=== PATIENT | male | born 1990 | race Caucasian/White ===

== ENCOUNTER 2021-11-09 14:22 | Outpatient (CLI) | payer BC, SELFPAY ==
[2021-11-09 17:17] LABS: Albumin* 4.7 g/dL (3.3-5.0); Chloride* 102 mmol/L (96-114); Sodium* 140 mmol/L (135-149)
[2021-11-09 17:20] LABS: Creatinine* 1.5 mg/dL (0.5-1.5); Estimated Glomerular Filt Rate 63 ml/min
[2021-11-09 17:21] LABS: Alanine Aminotransferase* 23 U/L (4-50); Alkaline Phosphatase* 62 U/L (40-150); Aspartate Amino Transferase* 32 U/L (12-35); Bilirubin Total* 0.4 mg/dL (0.1-1.5); Blood Urea Nitrogen* 14 mg/dL (5-24); Calcium* 9.4 mg/dL (8.4-10.6); Carbon Dioxide* 30 mmol/L (20-32); Glucose* 103 mg/dL (60-115); Total Protein* 7.1 g/dL (6.0-8.3)
[2021-11-09 17:30] LABS: C Reactive Protein* < 0.5 mg/dL (0.5-1.0)
== END 2021-11-09 14:23 | disposition home or self-care (01) ==
PROVIDERS: PCP Family Medicine; Visit Provider Family Medicine
DX: R10.32 Left lower quadrant pain (principal); M54.9 Dorsalgia, unspecified
CPT/HCPCS: 80053; 86140

== ENCOUNTER 2021-11-17 15:48 | Outpatient (CLI) | payer BC, SELFPAY ==
--- NOTE | 2021-11-17 16:00 | CRLHL7_ITS ---
For Patients: As a result of the Century Cures Act, medical imaging exams and procedure reports are released immediately into your electronic medical record. You may view this report before your referring provider. If you have questions, please contact your health care provider. INDICATION: Left lower quadrant pain. TECHNIQUE: CT abdomen and pelvis without contrast. COMPARISON: None. FINDINGS: Lower chest: Unremarkable. Liver: Normal in size and attenuation. No suspicious masses. Gallbladder and bile ducts: No stones or inflammation. No biliary dilatation. Pancreas: Unremarkable. No mass or inflammation. Spleen: Normal in size. No masses. Adrenal glands: Normal in size. No nodules. Kidneys: Normal in size. No suspicious masses, stones, or hydronephrosis. GI tract: Unremarkable. Normal in caliber. No sign of mass or inflammation. Normal appendix. Vasculature: Unremarkable. Lymph nodes: No lymphadenopathy. Abdominal wall/Omentum/Peritoneum: Unremarkable. No sign of mass or infiltration. No free air or significant free fluid. Small fat containing umbilical hernia. Pelvis: Small bilateral fat containing inguinal hernias. No pelvic mass, lymphadenopathy, or free fluid. Bones: Unremarkable for age. IMPRESSION: No evidence of acute intra-abdominal or pelvic abnormality. Please note that all CT scans at this facility use dose modulation, iterative reconstruction, and/or weight-based dosing when appropriate to reduce radiation dose to as low as reasonably achievable. Dictated by Jai Harris MD @ 11/18/2021 8:16:30 AM (Electronically Signed)
== END 2021-11-17 15:49 | disposition home or self-care (01) ==
PROVIDERS: PCP Family Medicine; Visit Provider Family Medicine
DX: R10.32 Left lower quadrant pain (principal)
CPT/HCPCS: 74176

== ENCOUNTER 2021-11-30 14:54 | Outpatient (CLI) | payer BC, SELFPAY ==
--- NOTE | 2021-11-30 15:00 | CRLHL7_ITS ---
For Patients: As a result of the Century Cures Act, medical imaging exams and procedure reports are released immediately into your electronic medical record. You may view this report before your referring provider. If you have questions, please contact your health care provider. Indication: Left-sided testicular and groin pain. Technique: Ultrasound of the scrotum and contents. Sonographic plaza-scale images were obtained with spectral and color Doppler waveform and spectral waveform analysis of the testicles. Comparison: None. Findings: Bother testicles are normal in size and echotexture. No masses. No suspicious calcifications. Arterial and venous color Doppler blood flow and spectral waveforms are present in both testicles. Epididymis: Bilateral simple appearing cysts. Otherwise unremarkable. Other: No significant hydrocele. No sign of varicocele. Scrotal wall is normal. No sign of hernia. Impression: Unremarkable ultrasound of the scrotum and contents. No sign of torsion or inflammation. No hernia or other specific explanation for pain. Dictated by Yrn Jackson MD @ 11/30/2021 3:53:07 PM (Electronically Signed)
== END 2021-11-30 14:55 | disposition home or self-care (01) ==
LOC: US 14:55
PROVIDERS: PCP Family Medicine; Visit Provider Surgery
DX: R10.32 Left lower quadrant pain (principal); N50.812 Left testicular pain
CPT/HCPCS: 76870; 93976

== ENCOUNTER 2022-05-10 08:53 | Outpatient (CLI) | payer BC, SELFPAY ==
[2022-05-10 10:55] LABS: Albumin* 4.4 g/dL (3.3-5.0); Chloride* 104 mmol/L (96-114)
[2022-05-10 10:56] LABS: Potassium* 4.1 mmol/L (3.6-5.1); Sodium* 140 mmol/L (135-149)
[2022-05-10 10:58] LABS: Alanine Aminotransferase* 32 U/L (4-50); Alkaline Phosphatase* 53 U/L (40-150); Aspartate Amino Transferase* 44 U/L (12-35); Blood Urea Nitrogen* 13 mg/dL (5-24); Calcium* 9.1 mg/dL (8.4-10.6); Carbon Dioxide* 30 mmol/L (20-32); Cholesterol* 191 mg/dL (90-199); Creatinine* 1.1 mg/dL (0.5-1.5); Estimated Glomerular Filt Rate 91 ml/min; Glucose* 98 mg/dL (60-115); Total Protein* 6.9 g/dL (6.0-8.3); Triglycerides* 204 mg/dL (40-149)
[2022-05-10 10:59] LABS: HDL Cholesterol* 52 mg/dL (>=40); LDL Cholesterol Calculated 98 mg/dL (<100)
== END 2022-05-10 08:54 | disposition home or self-care (01) ==
LOC: NFLDREF 08:53
PROVIDERS: PCP Family Medicine; Visit Provider Family Medicine
DX: E78.41 Elevated Lipoprotein(a) (principal); E78.5 Hyperlipidemia, unspecified
CPT/HCPCS: 80053; 80061; 83695

== ENCOUNTER 2022-07-06 07:25 | Outpatient (CLI) | payer BC, SELFPAY | END 2022-07-06 07:26 | disposition home or self-care (01) | LOC: NFLDREF 07-08 04:50 | PROVIDERS: PCP Family Medicine; Referring Provider Family Medicine; Visit Provider Internal Medicine | DX: E78.5 Hyperlipidemia, unspecified (principal) | CPT/HCPCS: 80061 ==

== ENCOUNTER 2023-06-02 08:25 | Outpatient (CLI) | payer BC, SELFPAY | END 2023-06-02 08:26 | disposition home or self-care (01) | PROVIDERS: PCP Family Medicine; Visit Provider Family Medicine | DX: E78.2 Mixed hyperlipidemia (principal); Z79.899 Other long term (current) drug therapy | CPT/HCPCS: 80048; 80061; 83695; 84460 ==

== ENCOUNTER 2024-05-31 07:59 | Outpatient (CLI) | payer BC, SELFPAY | END 2024-05-31 08:00 | disposition home or self-care (01) | LOC: NFLDREF 06-03 03:08 | PROVIDERS: PCP Family Medicine; Referring Provider Family Medicine; Visit Provider Internal Medicine | DX: E78.2 Mixed hyperlipidemia (principal); R36.1 Hematospermia; E78.41 Elevated Lipoprotein(a) | CPT/HCPCS: 80053; 80061; 83695 ==

== ENCOUNTER 2024-08-17 18:50 | Emergency (ER) | payer BC, SELFPAY ==
--- OUTSIDE RECORDS SUMMARY | 2016-01-21 05:22 | XMS_ITS | Continuity of Care Document ---
Demographics Address [address] [place] [address] Home Phone Preferred Language en Marital Status Unknown Samaritan Affiliation Unknown Race White Ethnic Group Not or Lati no Author Organization [facility] Address [address] [address] [place] [address] Phone Care Team Providers Care Spray Maker Name Role Phone Unavailable Unavailable Unavailable Allergies, Adverse Reactions, Alerts Substance Reaction Status Criticality No Known Allergies Active No Inform ation Medications Medication Instructions Dosage Effective Dates (start - stop) Status Comments Prevacid 30 mg capsule,delayed release take 1 capsule by oral route every day before a meal 30 MG - Active Procedures Procedure Date Offic/outpt E&m [facility] Routine Serum Collection Gg; Iga, Igd, Igg, Igm, Ea C-reactive Prot Advance Directives Directive Yes / No Effective Date File Name No Information Encounters Encounter Description Practice Location Reason(s) For Visit Diagnoses Date Provider Providers Copied on Encounter [facility], [address] [address], [place], [place], [id number], [place] tel:[phone] [facility] No Information No Information [facility], [address] [address], [place], [id number], [place] tel:[phone] [facility] Diarrhea, unspecified 6 No Information Referring Provider: Cristel Quiñonez [place], [address] [place], [address]. tel:[phone] Offic/outpt E&m [facility], [address] [address], [place], [id number], [place] tel:[phone] [facility] GI Symptoms or Concerns (chief complaint) Loose stoolsAbdomina l gas pain 201 6 No Information Referring Provider: Cristel Quiñonez [place], [address] [place], [address]. tel:[phone] Family History Family Member Type Diagnosis Age At Onset Mother Problem (finding) GERD Payers Payer name Insurance type Covered alliance party ID Fatuma byrne(s) Blue Cross Of [facility] [id number] Social History Type Description Quantity Date Captured Comments Alcohol Use Details Unknown Caffeine Use Details Unknown Tobacco Use Status No Information Smoking Status No Information Sex Male Chief Complaint And Reason For Visit No Information Reason For Referral Reason For Referral No Information Plan Of Treatment Date Type Action Status Referral Ordered: Celiac S. Panel: Glia(IgG/A)+IgA+tTG Appointment date/timeframe: -today ordered Referral Ordered: Immunoglobulins A/E/G/M, Serum Appointment date/timeframe: -today ordered History Of Present Illness Encounter Date Complaint History Of Prese nt Illness GI Symptoms or Concerns The cedrick ent is a 25-year-old male seen today because of a two-year history of loose stools and abdominal gas discomfort. Up until two years ago, the patient had very regular bowel habits with one formed stool daily. Over the last two years, however, he has had one and sometimes two stools per day. The big difference is that his stools, while previously normally formed, have been persistently soft and mushy, but never watery. Patient denies any history of constipation. He has had no blood in the stool nor any melena. Patient denies any nocturnal stools, urgency, or fecal incontinence. Stools are easy to flush and do not appear to be oily.Concomitantly, the patient does experience intermittent abdominal gaseous discomfort. This is more notable before a bowel movement and is relieved in general by passing stool. He has had no other abdominal pain. The patient denies any history of fever, chills, nausea, vomiting, or hematemesis. He does have an eight-year history of kirstin Functional Status Date Functional Assessmen t No Information Instructions Date Instruction Additional Infor cliff 1. Laboratory - C-re active protein, thyroid cascade, and celiac markers.2. Stool for ova and parasites, Giardia/Cryptosporidium, Clostridium difficile, and qualitative fat.3. I have recommended a one month trial of a high-fiber diet with the thought being that the patient's symptoms which are relatively mild could indeed be related to a form of irritable bowel. We discussed the high-fiber diet approach in some detail and the patient was given information in this regard. He indicated that he would like to try this approach for the next month.4. Patient was additionally given information on abdominal gas/gas pain, irritable bowel syndrome, and diarrhea.5. Patient will be seen in clinic followup in approximately one month assuming that above studies proved to be negative. At that time, his clinical status will be reassessed and further recommendations discussed as appropriate. If symptoms persist, i.e., no response to high-fiber diet approach, we may need to pursue further investigation such as colonoscopy to rule out inflammatory bowel disease more definitively, possibly breath testing, etc. The patient agrees to this approach and indicated his understanding. I told him to call in the meantime if he has any other questions or concerns. Related to Loose stools Gas and Gas Pain Related to Abdo francisco gas pain IBS Related to Loose stools High Fiber Diet Related to Loose stools Diarrhea Related to Loose stools Assessments Type Assessment Date No Information Patient Care Teams Name Effective Dates (start - stop) Status Members No Information
--- OUTSIDE RECORDS SUMMARY | 2016-01-21 05:22 | XMS_ITS | Continuity of Care Document ---
Demographics Address [address] [place] [address] Home Phone Preferred Language en Marital Status Unknown Sikh Affiliation Unknown Race White Ethnic Group Not or Lati no Author Organization [facility] Address [address] [address] [place] [address] Phone Care Team Providers Care Digital Intern Name Role Phone Unavailable Unavailable Unavailable Allergies, Adverse Reactions, Alerts Substance Reaction Status Criticality No Known Allergies Active No Inform ation Medications Medication Instructions Dosage Effective Dates (start - stop) Status Comments Prevacid 30 mg capsule,delayed release take 1 capsule by oral route every day before a meal 30 MG - Active Procedures Procedure Date Offic/outpt E&m [facility] Routine Serum Collection Gg; Iga, Igd, Igg, Igm, Ea C-reactive Prot Advance Directives Directive Yes / No Effective Date File Name No Information Encounters Encounter Description Practice Location Reason(s) For Visit Diagnoses Date Provider Providers Copied on Encounter [facility], [address] [address], [place], [place], [id number], [place] tel:[phone] [facility] No Information No Information [facility], [address] [address], [place], [id number], [place] tel:[phone] [facility] Diarrhea, unspecified 6 No Information Referring Provider: Cristel Quiñ[place]z [place], [address] [place], [address]. tel:[phone] Offic/outpt E&m [facility], [address] [address], [place], [id number], [place] tel:[phone] [facility] GI Symptoms or Concerns (chief complaint) Loose stoolsAbdomina l gas pain 201 6 No Information Referring Provider: Cristel Quiñonez [place], [address] [place], [address]. tel:[phone] Family History Family Member Type Diagnosis Age At Onset Mother Problem (finding) GERD Payers Payer name Insurance type Covered alliance party ID Fatuma byrne(s) Blue Cross Of [facility] [id number] Social History Type Description Quantity Date Captured [...]
--- OUTSIDE RECORDS SUMMARY | 2024-08-17 18:51 | XMS_ITS | Encounter Summary ---
Author Organization [facility] Address [address] [place] [address] Care Team Providers Care Officer Captain Name Role Phone Billie Rainey APRN, CNP Primary Care Provi shauna Cristel Quiñonez MD Primary Care Provider [phone] Cristel Quiñonez MD Unavailable [phone] Cristel Quiñonez MD Unavailable [phone] Encounter Details Date Type Department Care Team (Late st Contact Info) Description 09/28/2016 [facility] Medical Advice [facility] [address] [place] [phone] Luh Alvarado APRN ARTILLERY SPECIALIST [address] [place], [place] [id number] Social History Tobacco Use Types Packs/Day Years Used Date Smoking Tobacco: Never Smokeless Tobacco: Never Alcohol Use Standard Drinks/Week Comments Yes 0 (1 standard drink = 0.6 oz pur e alcohol) social Sex and Gender Information Value Date Recorded Sex Assigned at Not on file Legal 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 Gender Identity Not on file Sexual Orientation Not on file documented as of this encounter Plan of Treatment Not on file documented as of this encounter Visit Diagnoses Not on filedocumented in this encounter Care Teams Officer Captain Relationship Specialty Start Date End Date Billie Rainey APRN ARTILLERY SPECIALIST PCP - General Nurse Practitioner - Family 11/30/14 12/21/16 Cristel Qu[place] [address] [facility] [place] [address] PCP - General Family Practice 05/01/17 Cristel Quiñ[place] [address] [place] [address] PCP - Assigned PCP 01/08/17 05/22/18 Cristel Quiñ[place] [address] [place] [address] Assigned PCP 01/08/17 05/08/21 documented as of this encounter
--- OUTSIDE RECORDS SUMMARY | 2024-08-17 18:52 | XMS_ITS | Encounter Summary ---
Author Organization [place] Address [facility] [place] [address] Care Team Providers Care Radio Tower Technician Name Role Phone Cristel Quiñonez MD Primary Care Provider [phone] Cristel Quiñonez MD Unavailable [phone] Cristel Quiñonez MD Unavailable [phone] Reason for Visit * Reason Onset Date Comments Refill Request 01/30/2017 Encounter Details Date Type Department Care Team (Late st Contact Info) Description 01/30/2017 [facility] [id number] [place] [address] Cristel Quiñ[place] [address] [place] [address] Refill Request Social History Tobacco Use Types Packs/Day Years Used Date Smoking Tobacco: Never Smokeless Tobacco: Never Alcohol Use Standard Drinks/Week Comments Yes 0 (1 standard drink = 0.6 oz pur e alcohol) social Sex and Gender Information Value Date Recorded Sex Assigned at Not on file 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 [address] Comment: Khang Arrieta, I took the last two venlafaxine this morning. Are you writing a prescription for another 2 weeks? I checked with the pharmacy this morning and they dont have any open prescriptions for me. Thanks! D FINISHER documented in this encounter Plan of Treatment Not on file documented as of this encounter Visit Diagnoses Diagnosis Anxiety Anxiety state, unspecified Mild single current episode of major depressive disorder documented in this encounter Additional Health Concerns Assessment Noted Time PHQ-9 Depression Total Score: 7 12/29/19 17 7:38 AM CDT documented as of this encounter Care Teams Radio Tower Technician Relationship Specialty Start Date End Date Cristel Qu[place] [address] [place] [address] PCP - General Family Practice 05/01/17 Cristel Quiñ[place] [address] [place] [address] PCP - Assigned PCP 01/08/17 05/22/18 Cristel Quiñ[place] [address] [place] [address] Assigned PCP 01/08/17 05/08/21 documented as of this encounter
--- OUTSIDE RECORDS SUMMARY | 2024-08-17 18:52 | XMS_ITS | Encounter Summary ---
Author Organization [facility] Address [facility] [place] [address] Care Team Providers Care Carpet Cleaner Name Role Phone Cristel Quiñonez MD Primary Care Provider [phone] Cristel Quiñonez MD Unavailable [phone] Cristel Quiñonez MD Unavailable [phone] Reason for Visit * Reason Onset Date Comments MyChart Communication 04/13/2017 Encounter Details Date Type Department Care Team (Late st Contact Info) Description 04/13/2017 [facility] Medical 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 Gender Identity Not on file Sexual Orientation Not on file documented as of this encounter Plan of Treatment Not on file documented as of this encounter Visit Diagnoses Not on filedocumented in this encounter Additional Health Concerns Assessment Noted Time PHQ-9 Depression Total Score: 1 03/22/19 18 9:01 AM DATA ARCHITECT MANAGER documented as of this encounter Care Teams Carpet Cleaner Relationship Specialty Start Date End Date Cristel Quiñ[place]z [place] [address] [place] [address] PCP - General Family Practice 05/01/17 Cristel Quiñ[place] [address] [place] [address] PCP - Assigned PCP 01/08/17 05/22/18 Cristel Quiñ[place]z [place] [address] [place] [address] Assigned PCP 01/08/17 05/08/21 documented as of this encounter
--- OUTSIDE RECORDS SUMMARY | 2024-08-17 18:52 | XMS_ITS | Encounter Summary ---
Author Organization [facility] Address [address] [place] [address] Care Team Providers Care Gate Services Supervisor Name Role Phone Lisa Keyes MD Primary Care Provider Billie Rainey APRN [facility] Primary Care Provi shauna Cristel Quiñonez MD Primary Care Provider [phone] Cristel Quiñonez MD Unavailable [phone] Cristel Quiñonez MD Unavailable [phone] Reason for Visit * Reason Onset Date Comments Refill Request 10/10/2011 prevacid Encounter Details Date Type Department Care Team (Late st Contact Info) Description 10/10/[address] [address] Lisa Keyes MD [address] [place] [address] Refill Request (prevacid) Social History Tobacco Use Types Packs/Day Years Used Date Smoking Tobacco: Never Smokeless Tobacco: Never Alcohol Use Standard Drinks/Week Comments No 0 (1 standard drink = 0.6 oz pur e alcohol) Sex and Gender Information Value Date Recorded Sex Assigned at Not on file Legal 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 Pt due for appt. [phone] Left voice mail for patient to call back. MAYE: 05/29/2010 Dilia Ross RN BP Readings from Last 1 Encounters: 05/30/11 108/76 -Encounter/OV: every 12 months -Max RF's until next office visit related to diagnosis: every 12 months Category: Gastrointestinal/Proton Pump Inhibitors Dilia Ross RN. * Telephone Encounter - Cynthia Patel - 10/10/2011 11:16 AM CDT Refill request for Prevacid. Can you refill? Last OV:? Last Refill:05/29/10 LANsoprazole (PREVACID) 30 MG capsule 30 mg, DAILY 4 EditCancel Reorder Summary: Take 1 capsule by mouth daily., 30 mg, Oral, DAILY Starting 05/29/2010, Until Discontinued,Disp-90 capsule, R-4, Fax Dose, Route, Frequency: 30 mg, Oral, DAILY Start: 05/29/2010 Ord/Sold: 05/29/2010 (O) Patient Sig: Take 1 capsule by mouth daily. Ordered on: 05/29/2010 Authorized by: LISA KEYES Dispense: 90 capsule Cynthia Patel, Recreation Therapist documented in this encounter Plan of Treatment Not on file documented as of this encounter Visit Diagnoses Diagnosis GERD (gastroesophageal reflux disease)- Primary Esophageal reflux documented in this encounter Care Teams Gate Services Supervisor Relationship Specialty Start Date End Date Lisa Keyes MD PCP - General Family Practice 01/21/11 11/29/14 Billie Rainey APRN CNP PCP - General Nurse Practitioner - Family 11/30/14 12/21/16 Cristel Qu[place]z [place] [address] [place] [address] PCP - General Family Practice 05/01/17 Cristel Quiñ[place]z [place] [address] [place] [address] PCP - Assigned PCP 01/08/17 05/22/18 Cristel Quiñ[place]z [place] [address] [facility] [facility] [place] [address] Assigned PCP 01/08/17 05/08/21 documented as of this encounter
--- OUTSIDE RECORDS SUMMARY | 2024-08-17 18:52 | XMS_ITS | Encounter Summary ---
Author Organization [place] Address [address] [place] [address]. [place] [address] Care Team Providers Care Public Health Representative Name Role Phone Cristel Quiñonez MD Primary Care Provider [phone] Cristel Quiñonez MD Unavailable [phone] Encounter Details Date Type Department Care Team (Late st Contact Info) Description 10/03/2018 [facility] Medical Advice [facility] [address] [place] [address] Cristel Quiñ[place]z [place] [address] [place] [address] Social History Tobacco Use Types Packs/Day Years Used Date Smoking Tobacco: Never Smokeless Tobacco: Never Alcohol Use Standard Drinks/Week Comments Yes 0 (1 standard drink = 0.6 oz pur e alcohol) social PHQ-2 Answer Date Recorded PHQ-2 Score 0 03/27/2018 Sex and Gender Information Value Date Recorded Sex Assigned at Not on file Legal Sex Male 3:23 AM SHOWCASE MAKER Gender Identity Not on file Sexual Orientation Not on file documented as of this encounter Plan of Treatment Not on file documented as of this encounter Visit Diagnoses Not on filedocumented in this encounter Additional Health Concerns Assessment Noted Time PHQ-9 Depression Total Score: 0 05/02/19 19 3:30 PM SHOWCASE MAKER documented as of this encounter Care Teams Public Health Representative Relationship Specialty Start Date End Date Cristel Quiñ[place]z [place] [address] [place] [address] PCP - General Family Practice 05/01/17 Cristel Quiñ[place]z [place] [address] [place] [address] Assigned PCP 01/08/17 05/08/21 documented as of this encounter
--- OUTSIDE RECORDS SUMMARY | 2024-08-17 18:52 | XMS_ITS | Clinical Summary ---
Author Organization [facility] Address [address] [place] [address] Care Team Providers Care Water Safety Instructor Name Role Phone Cristel Quiñonez MD Primary Care Provider [phone] Allergies No known active allergies Medications pantoprazole (PROTONIX) 20 MG EC tabletIndication s:Gastroesophage al reflux disease without esophagitis Take by mouth 30-60 minutes before a meal. 90 tablet 3 05/02/2018 Active venlafaxine (EFFEXOR-XR) 37.5 MG 24 hr capsuleIndicatio ns:Anxiety Take 1 capsule (37.5 mg) by mouth daily 90 capsule 3 10/05/2018 Active Active Problems Problem Noted Date Diagnosed Date Anxiety 04/18/2017 Gastroesophageal reflux disease without esophagi tis 10/07/2015 Attention deficit disorder 05/29/2010 Resolved Problems Problem Noted Date Diagnosed Date Resolved Date Mild single current episode of major depressive disorder 03/22/2017 12/27/2017 CARDIOVASCULAR SCREENING; LD L GOAL LESS THAN 160 01/17/2010 10/03/2017 Thoracic spine pain 04/18/2008 10/04/19 18 GERD (gastroesophageal reflux disease) 04/07/2008 10/07/2015 Environmental allergies 04/07/200809/17 iamJOINT PAIN-LOWER LEG 09/15/200511/19 Immunizations Immunization Administration Dates Next Due DTAP (<7y) 02/01/2002 HEPA 01/17/2006 HepB 08/19/1999 Influenza (IIV3) PF 12/18/2012, 2,12/31/2010,2008,01/25/2005,01/06/2003 Influenza Vaccine >6 months,quad, PF 12/27/2017, 12/27/2016 Meningococcal (Menomune ) 01/06/2005 TD,PF 7+ (Tenivac) 02/04/2002 TDAP (Adacel,Boostrix) 11/06/2007 TDAP Vaccine (Adacel) 05/02/2018,03/29/2008 Family History Medical History Relation Comments C.A.D. Maternal Grandfather Heart Disease Maternal Grandfather C.A.D. Other Great grandfathe r - 40s Relation Status Comments Father Alive Maternal Grandfather Alive Maternal Grandmother Alive Mother Alive Other Paternal Grandfather Alive Paternal Grandmother Alive Social History Tobacco Use Types Packs/Day Years Used Date Smoking Tobacco: Never Smokeless Tobacco: Never Alcohol Use Standard Drinks/Week Comments Yes 0 (1 standard drink = 0.6 oz pur e alcohol) social PHQ-2 Answer Date Recorded PHQ-2 Score 0 03/27/2018 Adolescent Education Answer Date Record ed Getting School Help Needed Not on file 12/18 Sex and Gender Information Value Date Recorded Sex Assigned at Not on file Legal Sex Male 3:23 AM [employer]P Gender Identity Not on file Sexual Orientation Not on file Last Filed Vital Signs Vital Sign Reading Time Taken Comments Blood Pressure 134/88 05/02/2018 2:43 PM [employer]P Pulse 86 05/02/2018 2:43 PM [employer]P Temperature 37.3 C (99.1 F) 05/02/2018 2:43 PM [employer] REP Respiratory Rate 20 12/27/2016 4:30 PM CDT Oxygen Saturation 100% 05/02/2018 2:43 PM [employer] REP Inhaled Oxygen Concentration - - Weight 123.4 kg (272 lb) 05/02/2018 2:43 PM [employer] REP Height 188 cm (6' 2) 12/27/2017 2:40 PM CDT Body Mass Index 34.92 12/27/2017 2:40 PM CDT Plan of Treatment Not on file [place] [id number] Care Teams Water Safety Instructor Relationship Specialty Start Date End Date Cristel Quiñonez [place] [address] [place], [place] [id number] PCP - General Family Practice 05/01/17
--- OUTSIDE RECORDS SUMMARY | 2024-08-17 18:52 | XMS_ITS | Clinical Summary ---
Author Organization [facility] Address [address] [place] [address] Care Team Providers Care Seater Assembler Name Role Phone Carter Mcknight MD Primary Care Provider [phone] Allergies No known active allergies Medications lansoprazole (PREVACID) 30 mg capsule Take 1 capsule by mouth once daily. 90 capsule 0 01/04/2010 Active amphetamine-dex troamphetamine XR (ADDERALL XR) 30 mg capsule Take 1 capsule by mouth every morning. 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 Gender Identity Not on file Sexual Orientation Not on file Obstetrics History Last Filed Vital Signs Vital Sign Reading Time Taken Comments Blood Pressure 104/82 09/07/2011 3:34 PM CDT Pulse - - Temperature - - Respiratory Rate - - Oxygen Saturation - - Inhaled Oxygen Concentration - - Weight 116.2 kg (256 lb 3.2 oz) 09/07/2011 3:34 PM CDT Height 190.5 cm (6' 3) 09/07/2011 3:34 PM CDT Body Mass Index 32.02 09/07/2011 3:34 PM CDT Plan of Treatment Health Maintenance Due Date Last Done Comments Tdap 2000 Depression screening for age 12+ 2001 HIV for age 15-65 2004 BMI (ht and wt on same day) for age 18+ 12/22/2007 Hepatitis C screening for age 18-79 12/22/2007 Hepatitis B series for 19+ (1 of 3 - 19+ 3-dose series) 2008 Tetanus booster 2009 COVID-19 vaccine series ( season) 2023 02/17/2022, 03/03/2021, 07/21/2020, Additional history exists Influenza Vaccine (Season Ended) 2024 Pneumococcal series for age 6-49 Aged Out No longer eligible based on patient's age to complete this topic Insurance [facility] Care Teams Seater Assembler Relationship Specialty Start Date End Date Carter Mcknight MD [address] [place] [address] PCP - General Family Practice 07/01/22
--- OUTSIDE RECORDS SUMMARY | 2024-08-17 18:52 | XMS_ITS | Encounter Summary ---
Author Organization [facility] Address [facility] [place] [address] Care Team Providers Care Conservation Technician Name Role Phone Cristel Quiñoenz MD Primary Care Provider [phone] Cristel Quiñonez MD Unavailable [phone] Cristel Quiñonez MD Unavailable [phone] Reason for Visit * Reason Onset Date Comments Refill Request 06/27/2017 Encounter Details Date Type Department Care Team (Late st Contact Info) Description [facility] [address] [place] [address] Cristel Quiñ[place]z [place] [address] [place] [address] Refill Request Social History Tobacco Use Types Packs/Day Years Used Date Smoking Tobacco: Never Smokeless Tobacco: Never Alcohol Use Standard Drinks/Week Comments Yes 0 (1 standard drink = 0.6 oz pur e alcohol) social Sex and Gender Information Value Date Recorded Sex Assigned at Not on file 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 Gender Identity Not on file Sexual Orientation Not on file documented as of this encounter Miscellaneous Notes * Telephone Encounter - Luh Alvarado RN - 06/27/2017 10:15 AM CDTMessage from [facility]: Original authorizing provider: MD Terrance Lantigua would like a refill of the following medications: venlafaxine (EFFEXOR-XR) 75 MG 24 hr capsule [Cristel Quiñonez MD] Preferred pharmacy: [id number] [place] - [address] [facility] [address] Comment: I have about 10 days of the medication left before I need a refill. I am at a point that after working with my counselor for several months I would like to try working off the meds. I believe I need to start with small dose and gradually work off them if my memory serves. I will continue to work closely with my counselor while going off to track changes and progress. Please advise if we need to meet to refill the prescription. Thanks documented in this encounter Plan of Treatment Not on file documented as of this encounter Visit Diagnoses Diagnosis Anxiety Anxiety state, unspecified Mild single current episode of major depressive disorder documented in this encounter Additional Health Concerns Assessment Noted Time PHQ-9 Depression Total Score: 0 05/13/19 18 7:56 AM COTTON BAG CLIPPER documented as of this encounter Care Teams Conservation Technician Relationship Specialty Start Date End Date Cristel Quiñ[place]z [place] [address] [place] [address] PCP - General Family Practice 05/01/17 Cristel Quiñ[place]z [place] [address] [place] [address] PCP - Assigned PCP 01/08/17 05/22/18 Cristel Quiñ[place]z [place] [address] [place] [address] Assigned PCP 01/08/17 05/08/21 documented as of this encounter
--- OUTSIDE RECORDS SUMMARY | 2024-08-17 18:52 | XMS_ITS | Encounter Summary ---
Author Organization [facility] Address [address] [place] [address]. [place] [address] Care Team Providers Care Rougher Operator Name Role Phone Cristel Quiñonez MD Primary Care Provider [phone] Cristel Quiñonez MD Unavailable [phone] Encounter Details Date Type Department Care Team (Late st Contact Info) Description 10/03/2018 [facility] Medical Advice 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 Gender Identity Not on file Sexual Orientation Not on file documented as of this encounter Plan of Treatment Not on file documented as of this encounter Visit Diagnoses Not on filedocumented in this encounter Additional Health Concerns Assessment Noted Time PHQ-9 Depression Total Score: 0 05/02/19 19 3:30 PM DIRECTOR COLLEGE documented as of this encounter Care Teams Rougher Operator Relationship Specialty Start Date End Date Cristel Quiñonez [place] [address] [place] [address] PCP - General Family Practice 05/01/17 Cristel Quiñonez [place] [address] [place] [address] Assigned PCP 01/08/17 05/08/21 documented as of this encounter
--- OUTSIDE RECORDS SUMMARY | 2024-08-17 18:52 | XMS_ITS | Data Portability ---
Author Organization [facility] Address [address] [facility] [address] [place] [address] Care Team Providers Care Systems Test Analyst Name Role Phone BRAD AADMSON Primary Care Provider Assessment No assessment recorded. Plan of Treatment Reminders Order Date Submit Date Provider Last Modified By Organization Details Last Modified Time Details Appointments ESTABLISH ED 20 2024 01:00P M Jeremías Walker PA-C Not available Not available Not available Lab None recorded. Referral None recorded. Procedures None recorded. Surgeries None recorded. Imaging US, duplex, scrotum, complete - comment on epidymal cyst size/? increase /Please call to schedule 2021 022 mgoodpaste r3 [facility], [address] [facility], [place], [address], 02/03/2022 08:41:31 Medication Orders Valium Vaginal Supposito ry 2021 022 [facility] [address] [place], [address], 01/20/2022 11:41:55 Patient TargetsNo targets recorded. Patient InstructionsNo instructions recorded. Reason for Referral None Reported. Medical Equipment None Reported. Allergies No known drug allergies Medications Name Sig Start Date Stop Date Status Note LastModified by Organization Details LastModified Time Valium Vaginal Suppository Use 1 suppositori es per rectum daily as needed for pelvic/blad shauna pain 2021 active Not Available Not Available Not Avai lable venlafaxine ER 75 mg capsule,exte nded release 24 hr TAKE 1 CAPSULE BY MOUTH EVERY DAY active Not Available Not Available No t Available atorvastatin 20 mg tablet 20mg 1/day active Not Available Not Availa ble Not Available venlafaxine 75 mg tablet 75mg 1/day active Not Available Not Availa ble Not Available pantoprazole 20 mg tablet,delay ed release TAKE 1 TABLET BY MOUTH EVERY DAY active Not Available Not Available No t Available Vitals None Recorded Social History Question Answer Notes LastModified by Matthew Kenney [employer] Details LastModified Time Tobacco Smoking Status Never Smoker Not Available Health Note 01/18/2022 23:59:42 What Is Your Level Of Caffeine Consumption? Moderate [email or web address] Information not available 01/18/2022 How Much Tobacco Do You Chew? None [email or web address] Information not available 01/18/2022 What Was The Date Of Your Most Recent Tobacco Screening? 01/20/2022 [email or web address] Information not available 01/18/2022 What Is Your Relationship Status? [email or web address] Information not available 01/18/2022 Sex: Unknown Functional Status Question Answer Note LastModified by Matthew Kenney Cuisine Details LastModified Time Do you use any illicit or recreational drugs? No [email or web address] Information not available 01/18/2022 What is your level of alcohol consumption? Moderate [email or web address] Information not available 01/18/2022 Do you or have you ever used smokeless tobacco? Never used smokeless tobacco [email or web address] Information not available 01/18/2022 Do you or have you ever used e-cigarettes or vape? Never used electronic cigarettes [email or web address] Information not available 01/18/2022 Mental Status None recorded. Family History Relationship Description Onset Age of this Age Resolved Age Notes LastModified by Organization Details LastModified Time Maternal Grandfather Family history of cardiac disorder [email or web address] Not available 2021 23:59:41 Medical History Condition Response Sexually Transmitted Infection N Diabetes N Bleeding Disorder N High Blood Pressure N Kidney Stones N Cancer N Lung Disease N Depression Y High Cholesterol Y GERD/Acid Reflux Y Heart Disease N Immunizations Vaccine Type Date Status Note Provider Nam e and Address Organization Details Recorded Time SARS-COV-2 (COVID-19) vaccine, UNSPECIFIED completed Not Available Health Note 01/18/2022 23:59:45 Past Encounters Encounter ID Performer Location Encounter Start Date Encounter Closed Date Diagnosis/Indication Diagnosis SNOMED-CT Code Diagnosis ICD10 Code Diagnosis Note [id number] [place] QUINN [facility] [address] [facility] [place] [address] 01/20/2022 11:15:26 01/20/2022 13:42:15 Pain in testicle 89553772 N50.819 exam unremarkab le, discussed could have chronic pelvic pain component. Plan on repeat scrotal US given persistant aching left testicular pain in addtion to plan on using heat to perineum, pelvic bowel stretches, use of supportive underwear, OTC pain medication and valium rectal suppositor iesMay need to consider pelvic floor pt Pelvic and perineal pain [id number] R10.2 1.5 years pain, negative CT through PCPsuspect chronic pelvic pain. plan on using heat to perineum, pelvic bowel stretches, use of supportive underwear, OTC pain medication and valium rectal suppositor iesif benefit could consider pelvic floor pt Health Concerns Section Related Observation LastModified by Organization Detai ls LastModified Time None Recorded Concern Status LastModified by Organization Details LastModified Time None Recorded Advance Directives Directive None Recorded Payers Insurance Date Sequence Insurance Name Policy Number Policy Lr Covered Member ID Lr Member ID Guarantor Name 07/26/2024 1 [place] [id number] Terrance Walsh [id number] Terrance Walsh Notes Date Note Type Note Provider Name and Address Organization Details Recorded Time 01/20/2022 text/html Terrance Lovett is a 31 yo male here to establish care for groin pain and epididymal cyst [facility] scrotal US 11/30/21: normal bilateral testicles, bilateral epididymal simple appearing cysts, no hydrocele, varicocele and no signs of hernia 1.5 yrs ago abdominal pain started, minimal left testicular pain, occasionally low back pain. feels pain in left testicle is lingering and more prominent. no aggravating or alleviating factors. CHASE Aldrich [facility] 01/20/2022 11:42:22
[2024-08-17 18:54] VITALS: BP 153/102; PULSE 93; RESP 16; TEMP 36.9; O2SAT 97; BMI 35.6
[2024-08-17] MEDS: lidocaine HCL 2 % MULTIDOSE 20 ML VIAL INJECTION (19:31)
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
[2024-08-17 20:01] VITALS: BP 145/85; PULSE 85; RESP 16; TEMP 36.9; O2SAT 97
== END 2024-08-17 19:49 | disposition home or self-care (01) ==
LOC: ED 19:43
PROVIDERS: Emergency Provider Family Medicine; PCP Internal Medicine
DX: S01.01XA Laceration without foreign body of scalp, initial encounter (principal); W22.8XXA Striking against or struck by other objects, initial encounter
CPT/HCPCS: 12001; 99283; 99284